=== PATIENT | male | born 1990 | race Caucasian/White ===

== ENCOUNTER 2016-07-13 21:51 | Emergency (ER) | payer MEDICAID ==
[~2016-07-13] VITALS: Ht 172.7 cm; Wt 107.8 kg
[2016-07-13 22:35] VITALS: BP 132/89; PULSE 73; RESP 18; TEMP 99; O2SAT 98
--- NOTE | 2016-07-14 00:13 | PD ---
HPI Chief Complaint: Skin Problem Time Seen by Provider: 00:02 Travel History International Travel<30 days: No Contact w/Intl Traveler<30days: No Traveled to known affect area: No History of Present Illness HPI 26-year-old male presents to the emergency department for 3 days of tenderness and redness to the left mid forearm volar aspect. Patient denies fever chills nausea vomiting ascending erythema or axillary lymphadenopathy. Patient is not diabetic. Patient today stuck the area today with a needle but no improvement only noticed some clear blood but no purulent drainage. Patient states this site seems slightly improved but due to its persistence decided to come to the emergency room at this time. Patient also mentions he may have grant bitten by a snake 3 days ago the snake was small and brown and he did not have immediate pain or redness and no bruising. He doesn't know the type of snake other than it was brown small and he threw it down after it bit him. He does not know his tetanus status. Patient denies other concerns or complaints. Patient denies IV drug use or substance use. Patient rates his pain 4/10 in intensity. He denies any other known injury or insect bite or envenomation but states he may have been bitten by a spider instead. PFSH Past Medical History Narrative Medical Right arm fracture alcohol use nursing notes reviewed Medical History: Denies Significant Hx Musculoskeletal: Yes (FX RIGHT ARM) Tetanus Vaccination: Unknown Influenza Vaccination: No Past Surgical History Surgical History: No Previous Surgery Social History Alcohol Use: Yes ("OCCASIONALLY") Tobacco Use: No (QUIT AGE 18) Substance Use: No Allergies-Medications (Allergen,Severity, Reaction): Coded Allergies: No Known Allergies (Unverified , 07/13/16) Reported Meds & Prescriptions Reported Meds & Active Scripts Active Sulfamethoxazole-Trimethoprim Liq 200-40 Mg/5 Ml Susp 20 Ml PO Q12H 7 Days Narrative Medication none Review of Systems Except as stated in HPI: all other systems reviewed are Neg General / Constitutional: No: Fever, Chills HENT: No: Headaches, Vertigo, Lightheadedness, Congestion Cardiovascular: No: Chest Pain or Discomfort, Palpitations, Tachycardia, Diaphoresis Respiratory: No: Shortness of Breath Gastrointestinal: No: Nausea, Vomiting, Abdominal Pain Genitourinary: No: Flank Pain Musculoskeletal: No: Myalgias, Arthralgias Skin: Positive Lumps (left forearm), No Rash Neurologic: No: Weakness, Dizziness, Syncope Psychiatric: No: Anxiety Hematologic/Lymphatic: No: Easy Bruising, Lymph Node Enlargement Physical Exam Narrative GENERAL: Well-developed well-nourished male in no acute distress no respiratory distress; GCS 15 SKIN: Warm and dry. HEAD: Normocephalic. EYES: No scleral icterus. No injection or drainage. NECK: Supple, trachea midline. No JVD or lymphadenopathy. CARDIOVASCULAR: Regular rate and rhythm without murmurs, gallops, or rubs. RESPIRATORY: Breath sounds equal bilaterally. No accessory muscle use. GASTROINTESTINAL: Abdomen soft, non-tender, nondistended. MUSCULOSKELETAL: No cyanosis, or edema. Attention left forearm focal area of erythema and induration 2 cm x 3 cm without central pointing or fluctuance 2 small areas of scabbing without serous bloody or purulent drainage. Site consistent with possible snake bite. No ecchymosis no crepitus no sitting erythema no left axillary lymphadenopathy distally extremity is neurovascular tendon intact without edema digits are neurovascularly tendon intact with brisk capillary refill less than 2 seconds. BACK: Nontender without obvious deformity. No CVA tenderness. Data Data Last Documented VS Vital Signs Date Time Temp Pulse Resp B/P Pulse Ox O2 Delivery O2 Flow Rate FiO2 07/14/16 01:01 76 16 128/80 99 07/13/16 22:35 99.0 Orders Tetanus/Diphtheria Tox Adult (Tetanus/Di (07/14/16 00:15) Ibuprofen (Motrin) (07/14/16 00:15) Clindamycin (Cleocin) (07/14/16 00:15) Forearm (2vws) (07/14/16 ) [facility] Medical Decision Making Medical Screen Exam Complete: Yes Emergency Medical Condition: Yes Medical Record Reviewed: Yes Interpretation(s) Left FA xr: FINDINGS: Two view examination of the left forearm demonstrates no evidence of fracture or dislocation. Bony mineralization is normal. No foreign body is evident CONCLUSION: No evidence of radiodense foreign body. No acute bony findings. Jamshid Medrano MD on July 14, 2016 at 0:35 Board Certified Radiologist. This report was verified electronically. Differential Diagnosis Snake bite/dry strike/unlikely envenomation, cellulitis, abscess, retained FB Narrative Course Patient with local focal area of erythema with central induration 2 small scabs where patient has reportedly stabbed the area at least 5 times trying to get it to drain also the side of a possible snakebite from 3 days prior to arrival to the emergency department and also patient is concerned that he may have sustained a spider bite in the same location. In view of patient's variable history with possible dry strike versus minimal envenomation versus insect bite versus self-inflicted wound patient will be updated on his tetanus status and first dose of antibiotic administered there is no ascending erythema and nothing for ascending lymphangitis and no axillary lymphadenopathy patient his and hemodynamically stable edema distally there is no ecchymosis or evidence of necrosis. Patient is stable for outpatient management with oral antibiotic. Diagnosis Primary Impression: Cellulitis of forearm, left Additional Impression: Snake bite Qualified Code: T63.001A - Snake bite, accidental or unintentional, initial encounter Referrals: Primary Care Physician 1 day Patient Instructions: General Instructions Additional Instructions: Complete course of antibiotic as prescribed Recommend one day recheck through the emergency department or your primary care provider Take acetaminophen/Tylenol every 4 hours as needed for fever 100.4F or greater Take ibuprofen/Advil/Motrin 800 mg as often as every 8 hours as needed for fever 100.4F or greater or for pain associated with inflammation May apply warm compresses Return to the emergency department for any concerns or change in condition: Such as fever pain increased redness spreading redness or axilla pain or lymphadenopathy Do not puncture/poke the area with a needle or other instruments Med/Other Pt SpecificInfo: Prescription(s) given Scripts Sulfamethoxazole-Trimethoprim Liq 200-40 Mg/5 Ml Susp20 Ml PO Q12H 7 Days Ref 0 Prov:Gege Branch MD 07/14/16 Disposition: 01 DISCHARGE HOME Condition: Stable Gege Branch MD Jul 14, 2016 00:13
[2016-07-14] MEDS ORDERED: CLINDAMYCIN 150 MG CAP PO ONE (00:15)
[2016-07-14] MEDS ORDERED: IBUPROFEN 800 MG TAB PO ONE (00:15)
[2016-07-14] MEDS ORDERED: TETANUS/DIPHTHERIA TOXOID ADULT 0.5 ML VIAL IM ONE (00:15)
[2016-07-14] MEDS ORDERED: SULF20OR2 PO ×2 (00:25→00:58)
--- NOTE | 2016-07-14 00:38 | RADHPO ---
EXAM DATE/TIME: 07/14/2016 00:27 [facility] COMPARISON: No previous studies available for comparison. INDICATIONS : Evaluate for foreign body. Patient was bitten by snake on left forearm 3 days ago. MEDICAL HISTORY : None. SURGICAL HISTORY : None. ENCOUNTER: Initial ACUITY: 1 day PAIN SCORE: 6/10 LOCATION: Left medial mid-shaft forearm FINDINGS: Two view examination of the left forearm demonstrates no evidence of fracture or dislocation. Bony m ineralization is normal. No foreign body is evident CONCLUSION: No evidence of radiodense foreign body. No acute bony findings. Jamshid Medrano MD on July 14, 2016 at 0:35 Board Certified Radiologist. This report was verified electronically.
[2016-07-14 01:01] VITALS: BP 128/80
== END 2016-07-14 01:02 | disposition home or self-care (01) ==
LOC: PHED 21:51
DX: L03.114 Cellulitis of left upper limb (principal); Z23 Encounter for immunization
CPT/HCPCS: 73090; 90471; 90714

== ENCOUNTER 2016-07-19 17:46 | Emergency (ER) | payer MEDICAID ==
[~2016-07-19] VITALS: Ht 175.3 cm; Wt 105.0 kg
[~2016-07-19 17:46] MED LIST: SULF20OR2 PO
[2016-07-19 17:53] VITALS: BP 110/80; PULSE 92; RESP 16; TEMP 98.4; O2SAT 97
--- NOTE | 2016-07-19 18:27 | PD ---
HPI Chief Complaint: Skin Problem Time Seen by Provider: 18:20 Travel History International Travel<30 days: No Contact w/Intl Traveler<30days: No Traveled to known affect area: No History of Present Illness HPI 26-year-old male presents to the emergency room for evaluation of abscess to his left forearm for the past 9 days. Patient came to the emergency room 7 days ago concerned about a spider bite. He was updated on tetanus and arch with prescription for Bactrim. Patient has been taking Bactrim as directed and states his last dose was today. States the redness has not decreased in size but the abscess has increased in height and hardened. Denies fever, chills, nausea, vomiting, or streaking. PFSH Past Medical History Medical History: Denies Significant Hx Musculoskeletal: Yes (FX RIGHT ARM) Tetanus Vaccination: < 5 Years Influenza Vaccination: No Past Surgical History Surgical History: No Previous Surgery Social History Alcohol Use: No Tobacco Use: No Substance Use: No Allergies-Medications (Allergen,Severity, Reaction): Coded Allergies: No Known Allergies (Unverified , 07/19/16) Reported Meds & Prescriptions Reported Meds & Active Scripts Active Clindamycin (Clindamycin HCl) 300 Mg Cap 300 Mg PO Q6HR 7 Days Review of Systems Except as stated in HPI: all other systems reviewed are Neg Physical Exam Narrative GENERAL: Well-nourished, well-developed male in no acute distress. Afebrile. Ambulatory. SKIN: Warm and dry. There is an indurated area in the left, anterior, medial forearm which measures about 3.5 cm in diameter. It is fluctuant but there is no pointing or drainage. There is a zone of inflammation around it but no lymphangitis. HEAD: Normocephalic. EYES: No scleral icterus. No injection or drainage. NECK: Supple, trachea midline. No JVD or lymphadenopathy. Data Data Last Documented VS Vital Signs Date Time Temp Pulse Resp B/P Pulse Ox O2 Delivery O2 Flow Rate FiO2 07/19/16 17:53 98.4 92 16 110/80 97 Orders Lidocai-Epi 1%-1:100,000 Inj (Xylocaine- (07/19/16 18:30) Wound Culture And Gram Stain (07/19/16 18:44) MDM Medical Decision Making Medical Screen Exam Complete: Yes Emergency Medical Condition: Yes Medical Record Reviewed: Yes Differential Diagnosis Cellulitis versus abscess versus folliculitis Narrative Course 26-year-old male presents to the emergency room for evaluation of abscess to the left anterior, medial forearm for the past 9 days. Patient came in 7 days ago and was discharged with Bactrim. He has taken as directed but states the abscess has not improved. Patient denies worsening redness but states that it has become more elevated and harder. No systemic signs of infection. No streaking. No spontaneous drainage. He is afebrile and well-appearing in the emergency room. Resting comfortably in bed. Physical exam reveals a fluctuant abscess that is approximately 3.5 cm in diameter. Abscess needs to be drained. Likely did not improve with antibiotics because of this. Given patient's overall well appearance, vital signs, and physical exam, I would not consider failed outpatient therapy at this time. He will be discharged with prescription for clindamycin and told to return in 2 days for recheck/packing removal. Told to follow up with a primary care physician or return sooner for worsening symptoms. He understands and agrees to plan. Procedures Procedure Narrative INCISION AND DRAINAGE OF ABSCESS: The area was prepped and was sterilely draped. A subcutaneous wheal of 1% Xylocaine with epinephrine with a total number 1.5 mL was used to anesthetize the area properly. A number 11 scalpel was used to make a 1 cm incision across the area of the abscess. The abscess was drained, complex loculations were broken down, and irrigated with normal saline. Cultures were obtained. Quarter inch iodoform packing was placed in the wound. Sterile dressing applied. Patient advised to have packing removed in two days. Diagnosis Primary Impression: Abscess of left forearm Referrals: Primary Care Physician Patient Instructions: Abscess (ED), General Instructions Additional Instructions: Rest and drink plenty of fluids. Take clindamycin as directed, until gone. Return to the emergency room in 2 days to have packing removed and for wound recheck. If it falls out before, this is okay. Follow up with a primary care physician. Return to emergency room for worsening symptoms, as discussed. Med/Other Pt SpecificInfo: Prescription(s) given Scripts Clindamycin 300 Mg [id number] Mg PO Q6HR 7 Days Ref 0 Prov:Gómez Perdomo MD 07/19/16 Disposition: 01 DISCHARGE HOME Condition: Stable Bill,Rivka PA Jul 19, 2016 18:27
[2016-07-19] MEDS ORDERED: LIDOCAINE 1%/EPINEPHrine 1:100,000 SOLN 30 ML VIAL INFIL ONE (18:30)
[2016-07-19] MEDS ORDERED: LIDOCAINE 1%/EPINEPHrine 1:100,000 SOLN 20 ML VIAL INFIL ONE (18:30)
[2016-07-19] MEDS ORDERED: CLIN1CAP6 PO (18:46)
== END 2016-07-19 19:05 | disposition home or self-care (01) ==
LOC: PHEFT 17:46
DX: L02.414 Cutaneous abscess of left upper limb (principal); B96.89 Other specified bacterial agents as the cause of diseases classified elsewhere
CPT/HCPCS: 10061; 87070; 87205

== ENCOUNTER 2016-07-21 12:58 | Emergency (ER) | payer MEDICAID ==
[~2016-07-21] VITALS: Ht 175.3 cm; Wt 105.5 kg
[~2016-07-21 12:58] MED LIST changes: +CLIN1CAP6 PO; -SULF20OR2 PO
[2016-07-21 13:02] VITALS: BP 140/82; PULSE 78; RESP 16; TEMP 97.3; O2SAT 97
[2016-07-21] MEDS ORDERED: IBUP800T23 PO (14:39)
[2016-07-21] MEDS ORDERED: CLIN75SO PO (14:39)
--- NOTE | 2016-07-21 14:40 | PD ---
HPI Chief Complaint: Wound/Suture/Staple Re-Check Time Seen by Provider: 14:34 Travel History International Travel<30 days: No Contact w/Intl Traveler<30days: No Traveled to known affect area: No History of Present Illness HPI 26-year-old male presents to the emergency department for reevaluation of abscess to his left forearm. Patient was seen 2 days ago in the emergency Department incision and drainage was completed at that time. He was instructed to return today for packing removal. He was discharged prescription for clindamycin. However, he states he cannot take pills and only took 2 doses. Patient denies any fevers or chills. He reports localized pain. He denies any chronic medical problems or taking any medications. He denies any other complaints at this time. [facility] Past Medical History Musculoskeletal: Yes (FX RIGHT ARM) Social History Alcohol Use: No Tobacco Use: No Substance Use: No Allergies-Medications (Allergen,Severity, Reaction): Coded Allergies: No Known Allergies (Unverified , 07/21/16) Reported Meds & Prescriptions Reported Meds & Active Scripts Active Clindamycin (Clindamycin HCl) 300 Mg Cap 300 Mg PO Q6HR 7 Days Review of Systems Except as stated in HPI: all other systems reviewed are Neg Physical Exam Narrative GENERAL: Well-developed well-nourished male patient, ambulatory. Afebrile. SKIN: Warm and dry. Patient has abscess, status post incision and drainage to the left anterior forearm with mild surrounding erythema. Packing is in place. No lymphangiitis. HEAD: Normocephalic. Atraumatic. EYES: No scleral icterus. No injection or drainage. NECK: Supple, trachea midline. No JVD or lymphadenopathy. CARDIOVASCULAR: Regular rate and rhythm without murmurs, gallops, or rubs. RESPIRATORY: No accessory muscle use. MUSCULOSKELETAL: No cyanosis, or edema. Data Data Last Documented VS Vital Signs Date Time Temp Pulse Resp B/P Pulse Ox O2 Delivery O2 Flow Rate FiO2 07/21/16 13:02 97.3 78 16 140/82 97 MDM Medical Decision Making Medical Screen Exam Complete: Yes Emergency Medical Condition: Yes Medical Record Reviewed: Yes Differential Diagnosis Abscess recheck versus abscess versus cellulitis Narrative Course 26-year-old male presents to the emergency department reevaluation of abscess to his left forearm. He was discharged with a prescription clindamycin which he is not taking because he states he cannot take pills. Packing is removed without difficulty. Abscess is irrigated. The patient will be discharged with liquid clindamycin instructed on the importance of taking his antibiotic. He is instructed to return for any acute worsening of symptoms. He'll also be discharged with a prescription for ibuprofen for pain. He is agreeable to this plan. Diagnosis Primary Impression: Abscess of left forearm Referrals: Primary Care Physician call for appointment Patient Instructions: Abscess Follow-up (ED), General Instructions Additional Instructions: I have given you liquid clindamycin. Please take this as prescribed until gone. Take ibuprofen as instructed as needed with food for pain. Clean twice daily with soap and water and apply [id number] antibiotic ointment. Keep clean and dry. Follow-up with your primary care physician. Return to the emergency department for any acute worsening of symptoms. Med/Other Pt SpecificInfo: Prescription(s) given Scripts Ibuprofen 800 Mg [id number] Mg PO TID PRN (PAIN SCALE 1 TO 10) #21 TAB Ref 0 Prov:Stella Goins 07/21/16 Clindamycin Liq 75 Mg/5 Ml [id number] Mg PO Q6H 10 Days Ref 0 Prov:Stella Goins 07/21/16 Disposition: 01 DISCHARGE HOME Condition: Stable Stella Goins Jul 21, 2016 14:40
== END 2016-07-21 14:48 | disposition home or self-care (01) ==
LOC: PHED 12:58 → PHEFT 14:48
DX: L02.414 Cutaneous abscess of left upper limb (principal); T36.8X6A Underdosing of other systemic antibiotics, initial encounter
CPT/HCPCS: 99282

== ENCOUNTER 2016-08-18 15:28 | Emergency (ER) | payer MEDICAID ==
[~2016-08-18] VITALS: Ht 175.3 cm; Wt 107.0 kg
[~2016-08-18 15:28] MED LIST changes: +CLIN75SO PO; +IBUP800T23 PO
[2016-08-18 15:39] VITALS: BP 130/78; PULSE 73; RESP 16; TEMP 98.4; O2SAT 99
[2016-08-18] MEDS ORDERED: DOXY8SUS PO (17:53)
--- NOTE | 2016-08-18 17:53 | PD ---
HPI Chief Complaint: Medication Refill Request Time Seen by Provider: 17:48 Travel History International Travel<30 days: No Contact w/Intl Traveler<30days: No Traveled to known affect area: No History of Present Illness HPI Patient is a 26-year-old male presenting to the emergency room for reevaluation of an abscess that was on his left forearm on the volar aspect. He states he was bit by a snake 3 weeks ago, he was provided with a prescription for antibiotics however he's been out for 4 days and thinks he needs more. He denies any pain, fevers, chills, drainage, redness PFSH Past Medical History Medical History: Denies Significant Hx Musculoskeletal: Yes (Rt. arm fx) Tetanus Vaccination: < 5 Years Influenza Vaccination: No Past Surgical History Surgical History: No Previous Surgery Social History Alcohol Use: No Tobacco Use: No Substance Use: No Allergies-Medications (Allergen,Severity, Reaction): Coded Allergies: No Known Allergies (Unverified , 08/18/16) Reported Meds & Prescriptions Reported Meds & Active Scripts Active No Active Prescriptions or Reported Medications Review of Systems Except as stated in HPI: all other systems reviewed are Neg Skin: Positive Change in Pigmentation Physical Exam Narrative GENERAL: Well-nourished, well-developed patient. SKIN: Warm and dry. 1 cm area of dry flaky skin to the volar aspect of the left forearm with underlying Purple color to the skin. HEAD: Normocephalic. EYES: No scleral icterus. No injection or drainage. NECK: Supple, trachea midline. No JVD or lymphadenopathy. CARDIOVASCULAR: Regular rate and rhythm without murmurs, gallops, or rubs. RESPIRATORY: Breath sounds equal bilaterally. No accessory muscle use. GASTROINTESTINAL: Abdomen soft, non-tender, nondistended. MUSCULOSKELETAL: No cyanosis, or edema. BACK: Nontender without obvious deformity. No CVA tenderness. Data Data Last Documented VS Vital Signs Date Time Temp Pulse Resp B/P Pulse Ox O2 Delivery O2 Flow Rate FiO2 08/18/16 15:39 98.4 73 16 130/78 99 MDM Medical Decision Making Medical Screen Exam Complete: Yes Emergency Medical Condition: Yes Interpretation(s) Vital Signs Date Time Temp Pulse Resp B/P Pulse Ox O2 Delivery O2 Flow Rate FiO2 08/18/16 15:39 98.4 73 16 130/78 99 Differential Diagnosis Abscess versus cellulitis versus normal wound healing versus other Narrative Course Patient is a 26-year-old male reports presenting to the emergency department for reevaluation after I&D secondary to snake bite. Patient was initially seen in [place] he was initially prescribed Bactrim and then presented to the emergency department a week later and was given clindamycin tablets which he could not swallow so when he returned third time to have packing removed he was placed on clindamycin liquid. Patient's wound culture grew Mycobacterium. Today in the emergency department upon assessment of the previous I&D site there was noted to be purulent drainage spontaneously draining from the site. Mild pressure was applied to the forearm and purulent material was expressed, a new culture was obtained. At this time patient will be placed on doxycycline, Mycobacterium is susceptible to that. Patient should follow-up with her primary doctor for ongoing evaluation and management. It often takes several months of antibiotics to completely rid this bacteria. He was encouraged to return to emergency department for any new or worsening symptoms or if wound continue to drain. Patient verbalized understanding of instructions. Patient is stable for discharge. Diagnosis Primary Impression: Abscess of left forearm Referrals: Primary Care Physician Patient Instructions: General Instructions Additional Instructions: Return to emergency department for any new or worsening symptoms or if wound does not completely heal Follow-up with a primary doctor Complete full course of antibiotics as directed Med/Other Pt SpecificInfo: Prescription(s) given Scripts Doxycycline Monohydrate Liq 25 Mg/5 Ml [id number] Mg PO BID 14 Days Ref 0 Prov:Crystal Deal 08/18/16 Disposition: 01 DISCHARGE HOME Condition: Stable Crystal Deal Aug 18, 2016 17:53
== END 2016-08-18 18:18 | disposition home or self-care (01) ==
LOC: PHED 15:28 → PHEFT 18:18
DX: L02.414 Cutaneous abscess of left upper limb (principal); B96.89 Other specified bacterial agents as the cause of diseases classified elsewhere
CPT/HCPCS: 86403; 87070; 87205; 99283